=== PATIENT | female | born 1970 | race Caucasian/White ===

== ENCOUNTER 2023-06-24 09:37 | Outpatient (REF) | payer OTHER, SELFPAY ==
[2023-06-24 10:30] LABS: MANUAL DIFF FLAG NO
[2023-06-24 10:50] LABS: Basophils Absolute Auto 0.1 X10*3/uL (0.0-0.2); Basophils Percent Auto 0.9 % (0-2); Eosinophils Absolute Auto 0.2 X10*3/uL (0.0-0.4); Eosinophils Percent Auto 3.5 % (0-4); Hematocrit 40.5 % (37.0-47.0); Hemoglobin 13.5 g/dl (12.0-16.0); Imm Gran Abs Auto 0.01 X10*3/uL (0.00-0.03); Imm Gran Pct Auto 0.2 % (0.0-0.4); Lymphocytes Absolute Auto 2.6 X10*3/uL (1.2-4.9); Lymphocytes Percent Auto 41.1 % (20-40); Mean Corpuscular HGB Conc 33.3 g/dl (31.0-35.0); Mean Corpuscular Hemoglobin 30.3 pg (27.0-33.0); Mean Platelet Volume 9.6 fL (9.4-12.3); Monocytes Absolute Auto 0.5 X10*3/uL (0.1-1.2); Monocytes Percent Auto 7.8 % (2-11); Neutrophils Percent Auto 46.5 % (45-73); Platelet Count 351 X10*3/uL (160-400); Red Blood Count 4.45 X10*6/uL (4.20-5.50); White Blood Count 6.4 X10*3/uL (4.8-10.8)
[2023-06-24 12:11] LABS: Free T4 (Free Thyroxine) 0.85 ng/dL (0.71-1.85); Thyroid Stimulating Hormone 2.44 uIU/mL (0.32-4.0)
[2023-06-24 12:30] LABS: Anion Gap 11 (12-20)
[2023-06-24 12:35] LABS: Alanine Aminotransferase 23 U/L (0-31); Albumin Level 4.1 g/dL (3.5-5.0); Alkaline Phosphatase 101 U/L (39-117); Aspartate Amino Transferase 19 U/L (5-31); Bilirubin Total 0.3 mg/dL (0.0-1.0); Blood Urea Nitrogen 13 mg/dL (9-16); Calcium 9.1 mg/dL (8.4-10.2); Carbon Dioxide 27 mmol/L (22-29); Chloride 108 mmol/L (96-108); Cholesterol 258 mg/dL (<200); Estimated Glomerular Filt Rate > 60; Glucose Fasting 96 mg/dL (60-99); HDL Cholesterol 56 mg/dL (>40); LDL Cholesterol Calculated 179 mg/dL (<100); Potassium 3.9 mmol/L (3.3-5.1); Sodium 142 mmol/L (135-145); Total Protein 7.4 g/dL (6.5-8.0); Triglycerides 117 mg/dL (<150)
== END 2023-06-24 09:38 | disposition home or self-care (01) ==
LOC: HO.HMGCLDS 09:37
PROVIDERS: PCP Internal Medicine; Visit Provider Internal Medicine
DX: Z00.00 Encounter for general adult medical examination without abnormal findings (principal); R53.83 Other fatigue; E78.5 Hyperlipidemia, unspecified
CPT/HCPCS: 36415; 80053; 80061; 84439; 84443; 85025

== ENCOUNTER 2023-08-25 09:22 | Outpatient (REF) | payer OTHER, SELFPAY ==
--- NOTE | ~2023-08-25 | XR_ITS ---
EXAMINATION: X-RAY LEFT FOOT X-RAY RIGHT FOOT CLINICAL INFORMATION: Bilateral foot pain. COMPARISON: X-ray the left foot 08/25/2023. TECHNIQUE: 3 views of each foot. FINDINGS: Right foot: There is a prominent plantar calcaneal spur. The remaining bones, joints and soft tissues are normal. Left foot: There is a prominent plantar calcaneal spur. There is a small ossification at the Achilles tendon calcaneal attachment compatible with an old fractured spur or ossification of the tendon related to old tendon injury. Deformity of the second metatarsal compatible with old healed fracture. Lucency along the medial aspect of the head of the fifth metatarsal likely reflecting enthesopathic cyst. No joint space narrowing to suggest arthrosis. Remaining bones, joints and soft tissues unremarkable. XR/XR foot LT min 3V IMPRESSION: RIGHT FOOT: Prominent plantar calcaneal spur. LEFT FOOT: 1. No acute abnormality. 2. Old healed fracture of the second metatarsal. 3. Calcaneal spur.
--- NOTE | ~2023-08-25 | XR_ITS ---
EXAMINATION: X-RAY LEFT FOOT X-RAY RIGHT FOOT CLINICAL INFORMATION: Bilateral foot pain. COMPARISON: X-ray the left foot 08/25/2023. TECHNIQUE: 3 views of each foot. FINDINGS: Right foot: There is a prominent plantar calcaneal spur. The remaining bones, joints and soft tissues are normal. Left foot: There is a prominent plantar calcaneal spur. There is a small ossification at the Achilles tendon calcaneal attachment compatible with an old fractured spur or ossification of the tendon related to old tendon injury. Deformity of the second metatarsal compatible with old healed fracture. Lucency along the medial aspect of the head of the fifth metatarsal likely reflecting enthesopathic cyst. No joint space narrowing to suggest arthrosis. Remaining bones, joints and soft tissues unremarkable. XR/XR foot RT min 3V IMPRESSION: RIGHT FOOT: Prominent plantar calcaneal spur. LEFT FOOT: 1. No acute abnormality. 2. Old healed fracture of the second metatarsal. 3. Calcaneal spur.
== END 2023-08-25 09:23 | disposition home or self-care (01) ==
LOC: HO.HMGCX 09:22
PROVIDERS: PCP Internal Medicine; Visit Provider Internal Medicine
DX: M79.671 Pain in right foot (principal); M79.672 Pain in left foot
CPT/HCPCS: 73630